=== PATIENT | male | born 1970 | race American Indian/Alaskan Native ===

== ENCOUNTER 2017-11-04 08:43 | Emergency (ER) | payer SELFPAY ==
[2017-11-04] MEDS ORDERED: ASPIRIN PO ONE (09:04)
[2017-11-04] MEDS ORDERED: APRESOLINE IV ONE (09:38)
--- NOTE | 2017-11-04 10:06 | XRay Report ---
CHEST XRAY, 2 VIEWS: History: Cough, chest pain. Findings: There is mild cardiomegaly. Pulmonary vessels are within normal limits. The lungs are clear and fully expanded. No infiltrate, pleural effusion or pneumothorax. Normal thoracic cage. IMPRESSION: Mild cardiomegaly.
--- NOTE | 2017-11-04 10:21 | Emergency Department Report ---
HPI - General Chief Complaint: Chest Pain Time Seen by Provider: 11/04/17 09:13 - HPI HPI: This is a 47-year-old male presents to the emergency department complaint of a couple days of some midsternal chest discomfort and occasional shortness of breath. He says that the chest discomfort actually resolved overnight but he came in secondary to his cardiac history. The patient has history of coronary artery disease with quadruple bypass and CO that was done at [facility]. He has a history of asthma, hypertension and is a former smoker. He did not take anything for symptoms of presentation. He also presents with very elevated blood pressure and is on 5 or 6 blood pressure medications but says he did not take them this morning. No recent travel or sick contacts at home. He does not have a primary care physician or [employer]. ED Past Medical Hx - Past Medical History Previous Medical History?: Yes Hx Hypertension: Yes Hx Arthritis: Yes (degenerative) Hx Asthma: Yes Additional medical history: CAD - Surgical History Past Surgical History?: Yes Hx Open Heart Surgery: Yes - Social History Smoking Status: Former Smoker Substance Use Type: Alcohol, Prescribed - Medications Home Medications: Home Medications Medication Instructions Recorded Confirmed Last Taken Type Amlodipine Besylate [Norvasc] 10 mg PO QDAY 11/04/17 11/04/17 Unknown History Aspirin [Adult Low Dose Aspirin EC] 81 mg PO DAILY 11/04/17 11/04/17 Unknown History Aspirin/Acetaminophen/Caffeine 1 each PO PRN PRN 11/04/17 11/04/17 Unknown History [Goodafshan's Ex-Str Powder Packet] Hydralazine HCl 50 mg PO BID 11/04/17 11/04/17 Unknown History Isosorbide Dinitrate [Isordil 10 mg PO BID 11/04/17 11/04/17 Unknown History Titradose] Lisinopril [Zestril] 20 mg PO BID 11/04/17 11/04/17 Unknown History Rosuvastatin Calcium [Crestor] 20 mg PO HS 11/04/17 11/04/17 Unknown History cloNIDine [Catapres] 0.2 mg PO BID 11/04/17 11/04/17 Unknown History ED Review of Systems ROS: Stated complaint: CP/HYPERTENSION/SOB Other details as noted in HPI Comment: All other systems reviewed and negative Constitutional: denies: chills, fever Eyes: denies: eye pain, eye discharge, vision change ENT: denies: ear pain, throat pain Respiratory: shortness of breath. denies: cough, wheezing Cardiovascular: chest pain. denies: palpitations Gastrointestinal: denies: abdominal pain, nausea, diarrhea Genitourinary: denies: urgency, dysuria Musculoskeletal: denies: back pain, joint swelling, arthralgia Skin: denies: rash, lesions Neurological: denies: headache, weakness, paresthesias Physical Exam - Physical Exam Vital Signs: Vital Signs 11/04/17 11/04/17 11/04/17 09:01 09:22 09:58 Temperature 98.7 F 98.9 F Pulse Rate 88 75 76 Respiratory 20 23 Rate Blood Pressure 207/152 203/144 Blood Pressure 217/145 [Right] O2 Sat by Pulse 98 99 Oximetry Physical Exam: GENERAL: The patient is well-developed well-nourished. HENT: Normocephalic. Atraumatic. Patient has moist mucous membranes. EYES: Extraocular motions are intact. Pupils equal reactive to light bilaterally. NECK: Supple. Trachea is midline. CHEST/LUNGS: Clear to auscultation. There is no respiratory distress noted. HEART/CARDIOVASCULAR: Regular. There is no tachycardia. There is no murmur. ABDOMEN: Abdomen is soft, nontender. Patient has normal bowel sounds. There is no abdominal distention. SKIN: Skin is warm and dry. NEURO: The patient is awake, alert, and oriented. The patient is cooperative. The patient has no focal neurologic deficits. The patient has normal speech and gait. MUSCULOSKELETAL: There is no tenderness or deformity. There is no limitation range of motion. There is no evidence of acute injury. ED Course Vital Signs 11/04/17 11/04/17 11/04/17 09:01 09:22 09:58 Temperature 98.7 F 98.9 F Pulse Rate 88 75 76 Respiratory 20 23 Rate Blood Pressure 207/152 203/144 Blood Pressure 217/145 [Right] O2 Sat by Pulse 98 99 Oximetry ED Medical Decision Making - EKG Data -: EKG Interpreted by Al EKG shows normal: sinus rhythm, axis, intervals, QRS complexes, ST-T waves ( nonspecific ST-T waves) Rate: normal - EKG Data When compared to previous EKG there are: previous EKG unavailable Interpretation: nonspecific ST-T wave gustabo - Radiology Data Radiology results: image reviewed Chest x-ray does not show any acute process. There are no pleural effusions, obvious pneumonia and there is no pneumothorax. - Medical Decision Making Patient presented after having a few days of chest pain and shortness of breath and presented here with elevated blood pressure. His EKG did not show any ST elevation CO. However before the patient's labs were drawn, he suddenly said that he had a family emergency and had to leave. He eloped from the emergency department before we were able to get him to sign an AMA form and discussed with him the risks associated with leaving. - Differential Diagnosis CO, PE, CHF, pneumonia Critical Care Time: No Critical care attestation.: If time is entered above; I have spent that time in minutes in the direct care of this critically ill patient, excluding procedure time. ED Disposition Clinical Impression: Hypertensive urgency Chest pain Qualifiers: Chest pain type: unspecified Qualified Code(s): R07.9 - Chest pain, unspecified Disposition: ELOPED Is pt being admited?: No Condition: Stable Instructions: Chest Pain (ED) Time of Disposition: 13:11
[2017-11-04] MEDS ORDERED: NORMODYNE IV ONE (11:20)
[2017-11-04 11:33] LABS: Bilirubin,Urine NEG (Negative); Blood,Urine MOD (Negative); Color,Urine Yellow (Yellow); Nitrite,Urine NEG (Negative); Protein,Urine <15 mg/dL mg/dL (Negative); Urobilinogen,Urine < 2.0 mg/dL (<2.0)
[2017-11-04 11:34] LABS: WBC,Urine < 1.0 /HPF (0.0-6.0)
[2017-11-04 12:10] VITALS: BP 201/126
== END 2017-11-04 11:55 | disposition left against medical advice (07) ==
LOC: ED 08:43
DX: I16.0 Hypertensive urgency (principal); I10 Essential (primary) hypertension; M19.90 Unspecified osteoarthritis, unspecified site; J45.909 Unspecified asthma, uncomplicated; I25.10 Atherosclerotic heart disease of native coronary artery without angina pectoris; Z87.891 Personal history of nicotine dependence; Z95.1 Presence of aortocoronary bypass graft
CPT/HCPCS: 71046; 81001; 93005; 93010; 96374; 96375; 99284; J0360